=== PATIENT | female | born 2000 | race Caucasian/White ===

== ENCOUNTER 2021-06-13 17:49 | Emergency (ER) | payer BC ==
[2021-06-13 18:57] LABS: HEMOGLOBIN 14.8 gm/dl (12.3-15.3); RED BLOOD COUNT 4.46 M/UL (4.00-5.10); WHITE BLOOD COUNT 9.8 K/UL (4.5-11.0)
[2021-06-13 19:18] LABS: BUN/CREATININE RATIO 10 (0-10)
[2021-06-13] MEDS ORDERED: CEPHALEXIN500 M1 PO (20:31)
[2021-06-13] MEDS ORDERED: BENADRYL 25MG C25 MG PO (20:31)
[2021-06-13] MEDS ORDERED: PEPCID40 MG PO (20:31)
== END 2021-06-13 20:45 | disposition home or self-care (01) ==
LOC: ER1 17:49
PROVIDERS: Physician Assistant Medical
DX: L03.115 Cellulitis of right lower limb (principal); T63.441A Toxic effect of venom of bees, accidental (unintentional), initial encounter
CPT/HCPCS: 80053; 85025; 96374; 96375; 99283; J1200; J2930; J7030